=== PATIENT | female | born 1945 | race Caucasian/White ===

== ENCOUNTER 2021-01-18 06:01 | Outpatient (RCR) | payer MEDICARE, OTHER, SELFPAY ==
[2016-05-27 20:23] VITALS: BMI 20.9
[2021-01-18] MEDS: COVID-19 VACC, MRNA(PFIZER)/PF 30 MCG/0.3 ML SYRINGE IM (08:21)
[2021-02-08] MEDS: COVID-19 VACC, MRNA(PFIZER)/PF 30 MCG/0.3 ML SYRINGE IM (08:08)
== END 2021-04-19 23:59 ==
LOC: IMMUN 06:01
PROVIDERS: PCP Internal Medicine; Referring Provider Family Medicine; Visit Provider Family Medicine
DX: Z23 Encounter for immunization (principal)
CPT/HCPCS: 0001A; 0002A; 91300

== ENCOUNTER 2022-03-27 12:41 | Emergency (ER) | payer MEDICARE, OTHER, SELFPAY ==
[2022-03-27 12:42] VITALS: BP 149/112; PULSE 71; RESP 16; TEMP 36.7; O2SAT 95; BMI 23.3
[2022-03-27 13:23] VITALS: BP 136/66; BP 144/68; BP 154/87; PULSE 77; PULSE 83
[2022-03-27 13:27] LABS: Absolute Lymphocyte Count 1.26 X10^3/uL (0.83-4.51); Absolute Neutrophil Count 4.4 X10^3/uL (2.0-7.7); Basophil# 0.03 X10^3/uL; Basophil% 0.5 % (0-1); Eosinophil# 0.03 X10^3/uL; Eosinophils% 0.5 % (0-5); Hematocrit 39.3 % (37-47); Hemoglobin 13.1 g/dL (12.0-15.0); Lymphocyte # 1.26 X10^3/ul (0.83-4.51); Mean Corp Hgb Conc 33.3 g/dL (32-36); Mean Corpuscular Hgb 31.2 pg (27.0-32.0); Mean Corpuscular Volume 93.6 fL (81-99); Mean Platelet Vol. 9.7 fl (6.2-12.0); Monocyte# 0.32 X10^3/uL; Monocyte% 5.3 % (0-10); NRBC Flagged by Analyzer 0 % (0-5); Neutrophil # 4.36 X10^3/uL (2.7-7.7); Neutrophil % 72.5 % (47-70); Platelet Count 277 K/mm3 (150-450); RBC Distribution Width CV 12.2 % (11.6-14.6); RBC Distribution Width SD 42.3 fl (35.1-43.9)
--- NOTE | 2022-03-27 13:43 | EX.ED.DYSGE1 ---
HPI History of Present Illness Chief Complaint: Hypertension Detail of Chief Complaint: Orthostatic symptoms and hypertension Informant: patient and family Onset/Context/Timing Onset: Today and Yesterday Context: Sudden Onset Timing: Intermittent Quality: Lightheadedness with rising from sitting or supine position Location: Chiropractor's office and workout facility Current Severity: Mild Maximum Severity: Moderate Worsened by: Change in position Relieved by: Supine position and nothing with regards to the hypertension Associated Symptoms Associated Symptoms: Per HPI narrative Narrative Narrative: Patient is a 76-year-old woman who reports orthostatic symptoms yesterday and today. This occurred after she had her back work on because of muscle pain after doing gardening. She also had an episode today. She did work out for an hour and then had symptoms. She states they pump me with a bunch of fluids . She denies headache, visual, ocular auditory symptoms. She denies upper respiratory symptoms. She denies change in voice or difficulty swallowing. She denies cardiac vascular or respiratory symptoms. She denied GI symptoms. Denies black or maroon stool. She denies urologic symptoms. She states she was on antihypertensive meds. Her physician Dr. Mcfarlane discontinued the medicine 6 to 8 months ago. Prior similar symptoms: No Recent Illness/Hospitalization: No PFSH PFS Medical History Hypertension Home Medications Cetirizine Hcl [Zyrtec] 10 mg PO DAILY #14 tablet 05/27/16 [Rx Last Taken Unknown] calcium carbonate-vitamin D3 1 ea PO DAILY 05/27/16 [History Last Taken Unknown] famotidine 40 mg PO DAILY #10 tablet 05/27/16 [Rx Last Taken Unknown] ojbabuefuqab-Fu-yldi-minerals [Multiple Vitamins For Women] 2 ea PO DAILY 05/27/16 [History Last Taken Unknown] polyethylene glycol 3350 17 g PO DAILY 05/27/16 [History Last Taken Unknown] lisinopril 2.5 mg tablet 2.5 mg PO DAILY 09/08/21 [History Last Taken Unknown] Allergy/AdvReac Type Severity Reaction Status Date / Time No Known Allergies Allergy Verified 03/27/22 12:42 Social History (Updated 03/27/22 @ 13:[address] Dean Chin MD) household members: spouse Smoking Status: Never smoker substance use type: does not use ROS ROS ED Constitutional Constitutional ED: Denies chills, fever(s), subjective, sweats or weight loss Eyes Eyes: Denies blurry vision, change in vision or diplopia ENT ENT ED: Denies ear pain, rhinorrhea or sore throat Cardiovascular Cardiovascular: Denies chest pain, palpitations or racing heartbeat Respiratory/Chest Respiratory/Chest: Denies cough, dyspnea, dyspnea on exertion or sputum Gastrointestinal Gastrointestinal: Denies abdominal pain, diarrhea, melena, nausea or vomiting Genitourinary Genitourinary ED: Denies dysuria, hematuria or urinary frequency Musculoskeletal Musculoskeletal: Denies arthralgias, back pain, myalgias or neck pain Integumentary Denies rash Neurologic Neurologic: Denies headache(s) or paresthesias Endocrine Endocrinology: Denies polydipsia, polyphagia or polyuria Hematologic/Lymphatic Hematologic/Lymphatic: Denies anemia, easy bleeding or easy bruising EXAM Physical Exam Const Vital Signs: 03/27/22 12:42 03/27/22 13:11 03/27/22 13:23 Temperature 98.0 F Temperature Source Temporal Pulse Rate 71 Pulse Rate [Lying] 83 Pulse Rate [Sitting (for 1 minute prior to obtaining)] 77 Pulse Rate [Standing (for 1 minute prior to obtaining)] 77 Respiratory Rate 16 Respiratory Effort Normal Non-Labored Blood Pressure 149/112 H Blood Pressure [Lying] 136/66 H Blood Pressure [Sitting (for 1 minute prior to obtaining)] 144/68 H Blood Pressure [Standing (for 1 minute prior to obtaining)] 154/87 H Blood Pressure Mean 124 Blood Pressure Mean [Lying] 89 Blood Pressure Mean [Sitting (for 1 minute prior to obtaining)] 93 Blood Pressure Mean [Standing (for 1 minute prior to obtaining)] 109 Pulse Ox 95 Oxygen Delivery Method Room Air Positive well nourished and well developed General Appearance ED: well developed and NAD; Negative for cyanotic, diaphoretic or pallor HEENT Reports dry mucous membranes HEENT Narrative: Uvula midline. There is no erythema or exudate. TMs normal. trauma and tenderness Mouth ED: Yes dry mucous membranes Mouth: dry mucous membranes Eyes PERRL and EOMs intact bilaterally General Eye ED: Negative for pale conjunctiva or scleral icterus Neck no lymphadenopathy, supple and no JVD Resp normal respiratory effort and clear to auscultation bilaterally Cardio regular rate, regular rhythm, S1 normal heart sound, S2 normal heart sound and no murmurs GI normal to inspection, nondistended, normoactive bowel sounds and non-tender Palpation: soft Back/Spine no CVA tenderness Thoracic Spine / Upper Back: Negative for thoracic spinal tenderness or paraspinal muscle tenderness Extremity normal to inspection Extremity Narrative: There is no asymmetry, swelling, discoloration, leg vein distention, palpable cords or tenderness along the distribution of the deep venous system. General Extremety ED: Yes edema; Negative for tenderness General Extremity: edema Neuro oriented x3, CN's II-XII intact bilaterally and no sensory deficits noted Sensorium / Orientation: alert Motor Exam: strength 5/5 throughout Psych mental status grossly normal Skin no rashes or lesions noted and no wounds General Skin Exam: elasticity normal; Negative for jaundice or pallor MDM MDM MDM Narrative Medical decision making narrative: Patient with orthostatic symptoms. This may be due to dehydration. Will obtain blood work to rule out anemia, assess hydration. Orthostatic vital signs are unremarkable. Patient was informed that her blood pressure is elevated but not significant enough to necessitate urgent/emergent lowering. Lab Data Attestation: I reviewed the patient's lab results. Lab results narrative: CBC and UA are unremarkable. Last blood pressure was 132/66. Patient instructed to follow-up with her physician and have blood pressure rechecked. She is encouraged to drink more fluids. Labs: Laboratory Results - last 24 hr 03/27/22 03/27/22 13:15 13:40 WBC 6.0 RBC 4.20 Hgb 13.1 Hct 39.3 MCV 93.6 MCH 31.2 MCHC 33.3 RDW Std Deviation 42.3 RDW Coeff of Alessia 12.2 Plt Count 277 MPV 9.7 Immature Gran % (Auto) 0.200 Neut % (Auto) 72.5 H Lymph % (Auto) 21.0 [place] % (Auto) 5.3 Eos % (Auto) 0.5 Baso % (Auto) 0.5 Absolute Neuts (auto) 4.4 Absolute Lymphs (auto) 1.26 Nucleated RBC % 0 Urine Color Yellow Urine Clarity Clear Urine pH 7.0 Ur Specific [place] 1.010 Urine Protein Negative Urine Glucose (UA) Normal Urine Ketones Negative Urine Occult Blood Negative Urine Nitrite Negative Urine Bilirubin Negative Urine Urobilinogen Normal Ur Leukocyte Esterase Negative Urine RBC 0 SEEN Urine WBC 0 SEEN Ur Squamous Epith Cells 0-5 SEEN Urine Bacteria 0 SEEN Urine Mucus 0 SEEN Discharge Plan Triage Chief Complaint: Hypertension ED Provider: Dean Chin Dx/Rx/DC Orders Clinical Impression: Orthostatic dizziness, Asymptomatic hypertension Instructions: ED Hypertension, To Be Confirmed, ED Hypotension, Orthostatic Prescriptions: No Action lisinopril 2.5 mg tablet 2.5 mg PO DAILY RF: 0 polyethylene glycol 3350 17 GM packet 17 g PO DAILY RF: 0 rnpoqedkoqtl-Xf-eezb-minerals [Multiple Vitamin, Womens] 1 EACH tablet 2 ea PO DAILY RF: 0 calcium carbonate-vitamin D3 1 EACH tablet 1 ea PO DAILY RF: 0 famotidine 20 MG tablet 40 mg PO DAILY Qty: 10 RF: 0 Cetirizine Hcl [Zyrtec] 10 MG tablet 10 mg PO DAILY Qty: 14 RF: 0 Primary Care Provider: Millie Mcfarlane Referrals: Millie Mcfarlane MD [Primary Care Provider] - 1-2 Weeks Disposition Disposition: Home, Self Care
[2022-03-27 13:50] LABS: Bacteria 0 SEEN /hpf (None Seen); Mucous, Urine 0 SEEN /hpf (<or=2+); Red Blood Cells-Urine 0 SEEN /hpf (0-5); White Blood Cells 0 SEEN /hpf (0-5)
[2022-03-27 13:52] LABS: Color, Urine Yellow (Yellow); Glucose, Dipstick Normal (Normal); Ketone-Dipstick Negative (Negative); Leukocyte Esterase-Dipstick Negative /ul (Negative); Nitrite-Dipstick Negative (Negative); Occult Blood-Urine Negative /ul (Negative); Protein-Dipstick Negative (Negative); Urine Bilirubin Dipstick Negative (Negative); Urine Clarity Clear (Clear); Urine Urobilinogen Normal (Normal)
[2022-03-27 13:58] LABS: Squamous Epithelial Cells - UA 0-5 SEEN /hpf (5-10)
[2022-03-27 14:31] VITALS: BP 139/75; PULSE 66; RESP 16; O2SAT 98
== END 2022-03-27 14:48 | disposition home or self-care (01) ==
PROVIDERS: Emergency Provider Emergency Medicine; PCP Internal Medicine; Visit Provider Emergency Medicine
DX: R42 Dizziness and giddiness (principal); I10 Essential (primary) hypertension; Z79.899 Other long term (current) drug therapy
CPT/HCPCS: 81001; 85025; 99285

== ENCOUNTER 2025-03-01 08:05 | Emergency (ER) | payer MEDICARE, OTHER, SELFPAY ==
[2025-03-01 08:06] VITALS: PULSE 76; RESP 18; TEMP 36.6; O2SAT 94; BMI 24.0
[2025-03-01 08:09] VITALS: BP 152/68
--- NOTE | 2025-03-01 08:55 | EX.ED.DYSGE1 ---
HPI History of Present Illness Chief Complaint: Syncope Detail of Chief Complaint: Syncopal episode at [employer] Informant: patient and EMS Onset/Context/Timing Onset: Hours Context: Sudden Onset Timing: Intermittent Quality: Cathy from sitting position while standing became warm diaphoretic and unres Location: Happened during [facility] Current Severity: Gone Maximum Severity: Moderate Worsened by: HPI narrative Relieved by: Time Associated Symptoms Associated Symptoms: Vagal like symptoms Narrative Narrative: Patient is a 79-year-old female. She has history of allergies. She states she was at [facility]. She cathy from a sitting position. She was standing for some time. She became warm and was diaphoretic. She states the gentleman EXTR were helped her. She awoke on the pew sitting position. There was no fall. She present has no symptoms. Prior to this she did not feel chest discomfort and had no shortness of breath. She has not had recent black or maroon stool. She denies orthostatic symptoms. She has no other complaints. She denies headache, visual, ocular auditory symptoms. No trouble speech or swallowing. She denies neurologic symptoms i.e. paresthesia, anesthesia or motor weakness. Review of prior records indicates patient was on lisinopril. She is no longer on lisinopril because her pressures have been normal. Prior similar symptoms: No Recent Illness/Hospitalization: No PFSH PFSH Medical History Hypertension Home Medications ?Medication ?Instructions ?Recorded ?Last Taken ?Type Cetirizine Hcl [Zyrtec] 10 mg PO DAILY #14 TABLETS 05/27/16 Unknown Rx calcium 600 mg (as 1 ea PO DAILY 05/27/16 Unknown History carbonate)-vitamin D3 10 mcg (400 unit) tablet qzszepgwtojp-Bn-sczr-minerals 2 ea PO DAILY 05/27/16 Unknown History (Multiple Vitamin, Womens tablet) Allergy/AdvReac Type Severity Reaction Status Date / Time No Known Allergies Allergy Verified 03/01/25 08:06 Social History (Updated 03/27/22 @ 13:[address] Dean Chin MD) household members: spouse Smoking Status: Never smoker substance use type: does not use ROS ROS ED Constitutional Constitutional ED: Denies chills, fever(s) or subjective Eyes Eyes: Denies blurry vision, change in vision or diplopia Cardiovascular Cardiovascular: Denies chest pain, orthopnea or palpitations Respiratory/Chest Respiratory/Chest: Denies cough, dyspnea, dyspnea on exertion or orthopnea Gastrointestinal Gastrointestinal: Reports nausea; Denies abdominal pain or vomiting Musculoskeletal Musculoskeletal: Denies arthralgias or myalgias Integumentary Denies rash Neurologic Neurologic: Reports weakness Hematologic/Lymphatic Hematologic/Lymphatic: Reports systems reviewed and no addt'l complaints, except as documented EXAM Physical Exam Const Vital Signs: 03/01/25 08:06 03/01/25 08:09 03/01/25 08:09 Temperature 98 F Temperature Source Oral Pulse Rate 76 Respiratory Rate 18 Respiratory Effort Normal Respiratory Pattern Normal Blood Pressure 152/68 H Blood Pressure Mean 96 Pulse Ox 94 Oxygen Delivery Method Room Air Positive well nourished and well developed Constitutional Narrative: Pleasant elderly woman appears in no distress. Vital signs revealed mildly elevated blood pressure. General Appearance ED: well developed and NAD; Negative for pallor HEENT Reports moist mucous membranes HEENT Narrative: Head is atraumatic no cephalic. Ears normal. Nares patent. Posterior pharynx is normal. Uvula is midline. No deviation protrusion. Eyes PERRL and EOMs intact bilaterally Neck no lymphadenopathy, supple and no JVD Resp normal respiratory effort and clear to auscultation bilaterally Cardio regular rate, regular rhythm, S1 normal heart sound, S2 normal heart sound and no murmurs GI normal to inspection, nondistended, normoactive bowel sounds, non-tender, non-distended and no masses; Negative for hepatosplenomegaly Extremity normal to inspection General Extremety ED: Negative for edema or tenderness General Extremity: Negative for edema Neuro oriented x3 Sensorium / Orientation: alert Psych mental status grossly normal Skin no rashes or lesions noted, no wounds and skin turgor normal General Skin Exam: elasticity normal; Negative for jaundice or pallor MDM MDM MDM Narrative Medical decision making narrative: Patient history and physical is consistent with a vasovagal episode. EKG was obtained prehospital. EKG prehospital revealed a sinus rhythm rate of 74. Friedens was to the left. There is evidence of a left bundle branch block. This is unchanged from May 24, 2006. Patient was observed. Monitor revealed no ectopy during her ER stay. She was discharged at 0900. History & Record Review Additional record(s) reviewed:: Prior outpatient record (Note authored by Hazel Mishra for dizziness was reviewed. This was for office visit September 08, 2021. Her last ER visit was due to envenomation due to bee sting May [address] Hola Abdalla.) and Prior ED visit Rhythm Strip Rhythm Strip: Sinus Rhythm Rate: 72 Ectopy: None Treatment and Re-Evaluation :: Patient was informed she had a vasovagal episode. This is due to the fact that she was in [facility] was warm etc. She was discharged appropriate home-going instructions. Discharge Plan Triage Chief Complaint: Syncope ED Provider: Dean Chin Dx/Rx/DC Orders Clinical Impression: Syncope, vasovagal, Elevated blood-pressure reading without diagnosis of hypertension Instructions: ED Hypertension, To Be Confirmed, ED Fainting, Vagal Reaction Prescriptions: No Action Multiple Vitamin, Womens 1 EACH tablet 2 ea PO DAILY calcium carbonate-vitamin D3 1 EACH tablet 1 ea PO DAILY Cetirizine Hcl [Zyrtec] 10 MG tablet 10 mg PO DAILY Qty: 14 0RF Primary Care Provider: Millie Mcfarlane Referrals: Millie Mcfarlane MD [Primary Care Provider] - 1 Week Print Language: [place] Disposition Disposition: Home, Self Care
[2025-03-01 09:14] VITALS: BP 137/67
== END 2025-03-01 09:15 | disposition home or self-care (01) ==
LOC: ED 09:03
PROVIDERS: Emergency Provider Emergency Medicine; PCP Internal Medicine; Visit Provider Emergency Medicine
DX: R55 Syncope and collapse (principal); I44.7 Left bundle-branch block, unspecified; I10 Essential (primary) hypertension
CPT/HCPCS: 99285